=== PATIENT | male | born 1985 | race Caucasian/White ===

== ENCOUNTER 2018-01-05 07:54 | Emergency (ER) | payer OTHER ==
[2018-01-05] MEDS: IBUPROFEN 800 MG TAB PO (08:22)
[2018-01-05 09:38] LABS: ADD MAN DIFF? NO
[2018-01-05 09:45] LABS: WHITE BLOOD COUNT 11.3 10^3/ul (4.8-10.8)
[2018-01-05 09:45] LABS: BASOPHILS % 0.4 % (0.0-2.0); EOSINOPHILS # 0.3 10^3/ul (0.0-0.5); HEMATOCRIT 41.4 % (42.0-52.0); HEMOGLOBIN 13.6 g/dl (14.0-18.0); LYMPHOCYTES # 0.9 10^3/ul (0.8-2.9); LYMPHOCYTES % 7.6 % (15.0-51.0); MEAN CORPUSCULAR HEMOGLOBIN 28.5 pg (29.0-33.0); MEAN CORPUSCULAR HGB CONC 32.9 g/dl (32.0-37.0); MEAN CORPUSCULAR VOLUME 86.6 fl (82.0-101.0); MEAN PLATELET VOLUME 10.3 fl (7.4-10.4); MONOCYTES % 8.8 % (0.0-11.0); NEUTROPHIL # 8.9 10^3/ul (1.6-7.5); NEUTROPHILS % 79.2 % (39.0-77.0); PLATELET COUNT 262 10^3/UL (140-415); RED BLOOD COUNT 4.78 10^6/ul (4.70-6.10); RED CELL DISTRIBUTION WIDTH 13.2 % (11.5-14.5)
[2018-01-05 10:06] LABS: ALANINE AMINOTRANSFERASE 29 IU/L (13-69); ALBUMIN 3.6 g/dl (3.3-4.9); ALBUMIN/GLOBULIN RATIO 1.28; ALKALINE PHOSPHATASE 62 IU/L (42-121); ANION GAP 14 (8-16); ASPARTATE AMINO TRANSFERASE 29 IU/L (15-46); BILIRUBIN,INDIRECT 0.9 mg/dl (0-1.1); BILIRUBIN,TOTAL 0.9 mg/dl (0.2-1.3); BLOOD UREA NITROGEN 11 mg/dl (7-20); CALCIUM 8.2 mg/dl (8.4-10.2); CARBON DIOXIDE 23 mmol/L (21-31); CHLORIDE 107 mmol/L (97-110); CREATININE 0.75 mg/dl (0.61-1.24); GLUCOSE 106 mg/dl (70-220); LIPASE 53 U/L (23-300); SODIUM 141 mmol/L (135-144); TOTAL PROTEIN 6.4 g/dl (6.1-8.1)
[2018-01-05 10:16] LABS: B-TYPE NATRIURETIC PEPTIDE 2530 PG/ML (0-125); TROPONIN-I 0.116 ng/ml (0.000-0.120)
[2018-01-05] MEDS: FUROSEMIDE 40 MG INJ IV (10:37)
[2018-01-05] MEDS: IPRATROPIUM (NEB) 0.5 MG/2.5 ML AMP NEB (10:48)
[2018-01-05] MEDS: ALBUTEROL 0.083% (NEB) 2.5 MG/3 ML AMP NEB (10:48)
[2018-01-05] MEDS: POTASSIUM CHLORIDE (SR) 20 MEQ TAB PO (11:18)
[2018-01-05 11:32] LABS: ADD UMIC YES; UR ASCORBIC ACID 20 mg/dL (NEGATIVE); UR BILIRUBIN (Dip) NEGATIVE (NEGATIVE); UR BLOOD (Dip) NEGATIVE (NEGATIVE); UR CLARITY CLEAR (CLEAR); UR COLOR AMBER (YELLOW); UR GLUCOSE (Dip) NEGATIVE (NEGATIVE); UR KETONES (Dip) NEGATIVE (NEGATIVE); UR LEUKOCYTE ESTERASE (Dip) NEGATIVE Leu/ul (NEGATIVE); UR MUCUS MODERATE /HPF (NONE SEEN); UR NITRITE (Dip) NEGATIVE (NEGATIVE); UR RBC 1 /HPF (0-5); UR TOTAL PROTEIN (Dip) 2+ mg/dl (NEGATIVE); UR UROBILINOGEN (Dip) 2+ mg/dL (NEGATIVE); UR WBC 2 /HPF (0-5)
[2018-01-05 12:05] LABS: BARBITURATES Negative (NEGATIVE); BENZODIAZEPINES Negative (NEGATIVE); CANNABINOIDS Positive (NEGATIVE); COCAINE Negative (NEGATIVE)
[2018-01-05 12:59] LABS: AMPHETAMINE/METHAMPHETAMINE POSITIVE (NEGATIVE)
[2018-01-05 14:58] LABS: OPIATES NEGATIVE (NEGATIVE)
== END 2018-01-05 14:43 | disposition home or self-care (01) ==
LOC: FTE 07:54
DX: E87.6 Hypokalemia (principal); F19.10 Other psychoactive substance abuse, uncomplicated; F17.210 Nicotine dependence, cigarettes, uncomplicated; I10 Essential (primary) hypertension
CPT/HCPCS: 71045; 80053; 80307; 81001; 83690; 83880; 84484; 85025; 93005; 94664; 96374; 99285-25

== ENCOUNTER 2018-06-09 19:17 | Inpatient (IN) | payer OTHER ==
[2018-06-09 20:18] LABS: ADD MAN DIFF? NO
[2018-06-09 20:19] LABS: BASOPHIL # 0.1 10^3/ul (0.0-0.1); BASOPHILS % 0.5 % (0.0-2.0); EOSINOPHILS # 0.2 10^3/ul (0.0-0.5); EOSINOPHILS % 1.7 % (0.0-7.0); HEMATOCRIT 40.1 % (42.0-52.0); LYMPHOCYTES # 1.4 10^3/ul (0.8-2.9); LYMPHOCYTES % 10.7 % (15.0-51.0); MEAN CORPUSCULAR HEMOGLOBIN 23.3 pg (29.0-33.0); MEAN CORPUSCULAR HGB CONC 29.9 g/dl (32.0-37.0); MEAN CORPUSCULAR VOLUME 77.9 fl (82.0-101.0); MEAN PLATELET VOLUME 9.4 fl (7.4-10.4); MONOCYTE # 0.9 10^3/ul (0.3-0.9); MONOCYTES % 6.6 % (0.0-11.0); NEUTROPHIL # 10.2 10^3/ul (1.6-7.5); NEUTROPHILS % 79.7 % (39.0-77.0); PLATELET COUNT 404 10^3/UL (140-415); RED BLOOD COUNT 5.15 10^6/ul (4.70-6.10); RED CELL DISTRIBUTION WIDTH 17.2 % (11.5-14.5)
[2018-06-09 20:19] LABS: WHITE BLOOD COUNT 12.9 10^3/ul (4.8-10.8)
[2018-06-09] MEDS: ASPIRIN 81 MG TAB PO (20:24)
[2018-06-09] MEDS: NITROGLYCERIN 50 MG/D5W (PMX) 250 ML IV (20:25)
[2018-06-09] MEDS: FUROSEMIDE 20 MG INJ IV (20:25)
[2018-06-09 20:41] LABS: INR 1.21; PROTIME 15.4 Sec (11.9-14.9); PT RATIO 1.2
[2018-06-09 20:42] LABS: ALANINE AMINOTRANSFERASE 37 IU/L (13-69); ALBUMIN 3.5 g/dl (3.3-4.9); ALBUMIN/GLOBULIN RATIO 1.12; ALKALINE PHOSPHATASE 97 IU/L (42-121); ANION GAP 11 (5-13); ASPARTATE AMINO TRANSFERASE 30 IU/L (15-46); BILIRUBIN,INDIRECT 0.7 mg/dl (0-1.1); BILIRUBIN,TOTAL 0.7 mg/dl (0.2-1.3); BLOOD UREA NITROGEN 15 mg/dl (7-20); CALCIUM 9.1 mg/dl (8.4-10.2); CARBON DIOXIDE 22 mmol/L (21-31); CHLORIDE 107 mmol/L (97-110); CREATININE 0.91 mg/dl (0.61-1.24); Estimated GFR > 60 mL/min (>60); GLUCOSE 124 mg/dl (70-220); PARTIAL THROMBOPLASTIN TIME 31.1 Sec (23.0-35.0); SODIUM 140 mmol/L (135-144); TOTAL PROTEIN 6.6 g/dl (6.1-8.1)
[2018-06-09 20:53] LABS: B-TYPE NATRIURETIC PEPTIDE 4320 PG/ML (0-125); TROPONIN-I 0.068 ng/ml (0.000-0.120)
[2018-06-09] MEDS ORDERED: morphine 2 MG INJ IV (22:00)
[2018-06-09] MEDS ORDERED: ACETAMINOPHEN 650MG/20.3ML CUP PO (22:00)
[2018-06-09 22:19] LABS: HEMOGLOBIN A1C 6.4 % (0-5.9)
[2018-06-09] MEDS: ACETAMINOPHEN 325 MG TAB PO (22:50)
[2018-06-09 23:24] LABS: ANION GAP 14 (5-13); BLOOD UREA NITROGEN 15 mg/dl (7-20); CARBON DIOXIDE 26 mmol/L (21-31); CHLORIDE 104 mmol/L (97-110); CREATININE 1.02 mg/dl (0.61-1.24); Estimated GFR > 60 mL/min (>60); GLUCOSE 96 mg/dl (70-220); SODIUM 144 mmol/L (135-144)
[2018-06-10] MEDS: ONDANSETRON 4 MG INJ IV (00:03)
[2018-06-10] MEDS: morphine 4 MG/ML VIAL IV ×2 (00:04→10:58)
[2018-06-10 02:42] LABS: CREATINE KINASE 59 IU/L (23-200)
[2018-06-10 02:55] LABS: CK INDEX 2.8; CK-MB 1.63 ng/ml (0.0-2.4); TROPONIN-I 0.081 ng/ml (0.000-0.120)
[2018-06-10] MEDS: LORAZEPAM 2 MG INJ IV ×2 (03:41→19:48)
[2018-06-10] MEDS: NITROGLYCERIN 50 MG/D5W (PMX) 250 ML IV ×5 (03:50→19:49)
[2018-06-10 07:48] LABS: ADD MAN DIFF? NO
[2018-06-10 07:49] LABS: WHITE BLOOD COUNT 15.1 10^3/ul (4.8-10.8)
[2018-06-10 07:49] LABS: BASOPHIL # 0.1 10^3/ul (0.0-0.1); BASOPHILS % 0.5 % (0.0-2.0); EOSINOPHILS # 0.3 10^3/ul (0.0-0.5); HEMATOCRIT 36.9 % (42.0-52.0); LYMPHOCYTES # 1.4 10^3/ul (0.8-2.9); MEAN CORPUSCULAR HEMOGLOBIN 23.6 pg (29.0-33.0); MEAN CORPUSCULAR HGB CONC 29.8 g/dl (32.0-37.0); MEAN CORPUSCULAR VOLUME 79.2 fl (82.0-101.0); MONOCYTES % 6.8 % (0.0-11.0); NEUTROPHIL # 12.2 10^3/ul (1.6-7.5); PLATELET COUNT 372 10^3/UL (140-415); RED BLOOD COUNT 4.66 10^6/ul (4.70-6.10); RED CELL DISTRIBUTION WIDTH 17.2 % (11.5-14.5)
[2018-06-10 08:06] LABS: ANION GAP 10 (5-13); BLOOD UREA NITROGEN 18 mg/dl (7-20); CALCIUM 8.7 mg/dl (8.4-10.2); CARBON DIOXIDE 26 mmol/L (21-31); CHLORIDE 106 mmol/L (97-110); CREATINE KINASE 59 IU/L (23-200); CREATININE 1.11 mg/dl (0.61-1.24); Estimated GFR > 60 mL/min (>60); GLUCOSE 120 mg/dl (70-220); POTASSIUM 4.2 mmol/L (3.5-5.1); SODIUM 142 mmol/L (135-144)
[2018-06-10 08:17] LABS: CK INDEX 3.1; CK-MB 1.82 ng/ml (0.0-2.4); TROPONIN-I 0.071 ng/ml (0.000-0.120)
[2018-06-10 08:23] LABS: AADO2 Arterial 105.8 mmHg (7.0-24.0); Allen Test ACCEPTAB; Arterial Base Excess -0.1 mmol/L (-3.0-3); Arterial Blood Gas Oxygen Sat 90.3 mmHG (95.0-98.0); Arterial COHb 0.9 % (0.0-3.0); Arterial Fraction of Oxyhgb 89.2 % (93.0-99.0); Arterial HCO3 24.6 mmol/L (22.0-26.0); Arterial MetHb 0.3 % (0.0-1.5); Arterial pCO2 40.2 mmhg (35-45); MODE NASAL CANNULA; Site Right Radial
[2018-06-10] MEDS: FAMOTIDINE 20 MG INJ IV ×2 (09:46→11:25)
[2018-06-10] MEDS: ENOXAPARIN 30 MG/0.3 ML SYG SC (09:46)
[2018-06-10] MEDS: LISINOPRIL 20 MG TAB PO (16:02)
[2018-06-10] MEDS: traMADol 50 MG TAB PO (16:04)
[2018-06-10] MEDS ORDERED: ENALAPRILAT IVPB (17:00)
[2018-06-10] MEDS ORDERED: DEXTROSE 5% IVPB (17:00)
[2018-06-10] MEDS: ENALAPRILAT 1.25 MG INJ IV (20:18)
[2018-06-11] MEDS: NITROGLYCERIN 50 MG/D5W (PMX) 250 ML IV (00:42)
[2018-06-11] MEDS: CEPASTAT LOZENGE MT (04:26)
[2018-06-11 04:58] LABS: ADD MAN DIFF? NO
[2018-06-11 05:08] LABS: WHITE BLOOD COUNT 12.9 10^3/ul (4.8-10.8)
[2018-06-11 05:08] LABS: BASOPHIL # 0.1 10^3/ul (0.0-0.1); BASOPHILS % 0.4 % (0.0-2.0); EOSINOPHILS # 0.3 10^3/ul (0.0-0.5); EOSINOPHILS % 2.6 % (0.0-7.0); HEMATOCRIT 37.2 % (42.0-52.0); LYMPHOCYTES # 1.6 10^3/ul (0.8-2.9); LYMPHOCYTES % 12.1 % (15.0-51.0); MEAN CORPUSCULAR HEMOGLOBIN 23.6 pg (29.0-33.0); MEAN CORPUSCULAR HGB CONC 29.6 g/dl (32.0-37.0); MEAN CORPUSCULAR VOLUME 79.8 fl (82.0-101.0); MEAN PLATELET VOLUME 9.6 fl (7.4-10.4); MONOCYTES % 7.5 % (0.0-11.0); NEUTROPHIL # 9.9 10^3/ul (1.6-7.5); NEUTROPHILS % 76.8 % (39.0-77.0); PLATELET COUNT 407 10^3/UL (140-415); RED BLOOD COUNT 4.66 10^6/ul (4.70-6.10); RED CELL DISTRIBUTION WIDTH 17.2 % (11.5-14.5)
[2018-06-11 05:28] LABS: ANION GAP 10 (5-13); BLOOD UREA NITROGEN 22 mg/dl (7-20); CALCIUM 8.9 mg/dl (8.4-10.2); CARBON DIOXIDE 29 mmol/L (21-31); CHLORIDE 101 mmol/L (97-110); CREATININE 1.16 mg/dl (0.61-1.24); Estimated GFR > 60 mL/min (>60); GLUCOSE 120 mg/dl (70-220); POTASSIUM 4.5 mmol/L (3.5-5.1); SODIUM 140 mmol/L (135-144)
[2018-06-11] MEDS: ONDANSETRON 4 MG INJ IV (05:29)
[2018-06-11] MEDS: LORAZEPAM 2 MG INJ IV ×2 (06:24→21:41)
[2018-06-11] MEDS: LISINOPRIL 20 MG TAB PO (09:39)
[2018-06-11] MEDS: FUROSEMIDE 20 MG TAB PO (09:40)
[2018-06-11] MEDS: ASPIRIN (EC) 81 MG TAB PO (09:40)
[2018-06-11] MEDS: ENOXAPARIN 30 MG/0.3 ML SYG SC (09:43)
[2018-06-11] MEDS: FAMOTIDINE 20 MG INJ IV ×2 (09:43→20:16)
[2018-06-11] MEDS: morphine 4 MG/ML VIAL IV (18:00)
[2018-06-12] MEDS: morphine 4 MG/ML VIAL IV ×2 (00:50→22:37)
[2018-06-12] MEDS: ASPIRIN (EC) 81 MG TAB PO (09:01)
[2018-06-12] MEDS: FUROSEMIDE 20 MG TAB PO (09:02)
[2018-06-12] MEDS: FAMOTIDINE 20 MG INJ IV (09:03)
[2018-06-12] MEDS: ENOXAPARIN 30 MG/0.3 ML SYG SC (09:14)
[2018-06-12] MEDS: LISINOPRIL 20 MG TAB PO (11:24)
[2018-06-12] MEDS: LORAZEPAM 2 MG INJ IV ×2 (12:28→19:19)
[2018-06-12] MEDS: FAMOTIDINE 20 MG TAB PO (21:18)
[2018-06-13] MEDS: morphine 4 MG/ML VIAL IV ×2 (05:36→18:13)
[2018-06-13 05:41] LABS: ADD MAN DIFF? NO
[2018-06-13 05:45] LABS: BASOPHIL # 0.1 10^3/ul (0.0-0.1); BASOPHILS % 0.6 % (0.0-2.0); EOSINOPHILS # 0.1 10^3/ul (0.0-0.5); EOSINOPHILS % 0.9 % (0.0-7.0); HEMATOCRIT 38.1 % (42.0-52.0); HEMOGLOBIN 11.5 g/dl (14.0-18.0); LYMPHOCYTES # 1.6 10^3/ul (0.8-2.9); LYMPHOCYTES % 12.9 % (15.0-51.0); MEAN CORPUSCULAR HEMOGLOBIN 23.5 pg (29.0-33.0); MEAN CORPUSCULAR HGB CONC 30.2 g/dl (32.0-37.0); MEAN CORPUSCULAR VOLUME 77.8 fl (82.0-101.0); MEAN PLATELET VOLUME 9.5 fl (7.4-10.4); MONOCYTE # 1.2 10^3/ul (0.3-0.9); MONOCYTES % 9.3 % (0.0-11.0); NEUTROPHIL # 9.4 10^3/ul (1.6-7.5); NEUTROPHILS % 75.4 % (39.0-77.0); PLATELET COUNT 467 10^3/UL (140-415); RED CELL DISTRIBUTION WIDTH 17.2 % (11.5-14.5)
[2018-06-13 05:45] LABS: WHITE BLOOD COUNT 12.4 10^3/ul (4.8-10.8)
[2018-06-13 06:22] LABS: ANION GAP 14 (5-13); BLOOD UREA NITROGEN 29 mg/dl (7-20); CALCIUM 8.7 mg/dl (8.4-10.2); CARBON DIOXIDE 24 mmol/L (21-31); CHLORIDE 100 mmol/L (97-110); CREATININE 0.93 mg/dl (0.61-1.24); Estimated GFR > 60 mL/min (>60); GLUCOSE 138 mg/dl (70-220); MAGNESIUM 1.7 mg/dl (1.7-2.5); POTASSIUM 4.2 mmol/L (3.5-5.1); SODIUM 138 mmol/L (135-144)
[2018-06-13] MEDS: ASPIRIN (EC) 81 MG TAB PO (08:50)
[2018-06-13] MEDS: FUROSEMIDE 20 MG TAB PO (08:50)
[2018-06-13] MEDS: LISINOPRIL 20 MG TAB PO (08:51)
[2018-06-13] MEDS: FAMOTIDINE 20 MG TAB PO ×2 (08:51→20:14)
[2018-06-13] MEDS: ENOXAPARIN 30 MG/0.3 ML SYG SC (08:57)
[2018-06-13] MEDS: LORAZEPAM 2 MG INJ IV ×2 (10:49→20:14)
[2018-06-13] MEDS: ENALAPRILAT 1.25 MG INJ IV (12:07)
[2018-06-13] MEDS: FUROSEMIDE 40 MG INJ IV (20:14)
[2018-06-13] MEDS: MAGNESIUM SULFATE 3 GM in DEXTROSE 5% 100 ML IVPB (21:08)
[2018-06-13] MEDS ORDERED: ENALAPRILAT 2.5 MG INJ IV (22:00)
[2018-06-14] MEDS: morphine 4 MG/ML VIAL IV ×3 (01:12→19:56)
[2018-06-14] MEDS: LORAZEPAM 2 MG INJ IV ×4 (02:31→23:23)
[2018-06-14] MEDS: LISINOPRIL 20 MG TAB PO (08:05)
[2018-06-14] MEDS: FUROSEMIDE 40 MG TAB PO (08:06)
[2018-06-14] MEDS: FAMOTIDINE 20 MG TAB PO ×2 (08:06→19:57)
[2018-06-14] MEDS: ASPIRIN (EC) 81 MG TAB PO (08:07)
[2018-06-14] MEDS: ENOXAPARIN 30 MG/0.3 ML SYG SC (08:28)
[2018-06-14] MEDS: traMADol 50 MG TAB PO (10:31)
[2018-06-14] MEDS: SPIRONOLACTONE 25 MG TAB PO (12:27)
[2018-06-14] MEDS: ALBUTEROL/IPRATROPIUM (NEB) 3 ML AMP HHN (21:02)
[2018-06-15] MEDS: morphine LIQ (10 MG/5 ML) CUP PO ×2 (03:09→21:43)
[2018-06-15 07:08] LABS: ADD MAN DIFF? NO
[2018-06-15 07:18] LABS: BASOPHIL # 0.1 10^3/ul (0.0-0.1); BASOPHILS % 0.6 % (0.0-2.0); EOSINOPHILS # 0.1 10^3/ul (0.0-0.5); EOSINOPHILS % 1.3 % (0.0-7.0); HEMATOCRIT 37.3 % (42.0-52.0); LYMPHOCYTES # 1.8 10^3/ul (0.8-2.9); LYMPHOCYTES % 17.6 % (15.0-51.0); MEAN CORPUSCULAR HEMOGLOBIN 23.2 pg (29.0-33.0); MEAN CORPUSCULAR HGB CONC 29.5 g/dl (32.0-37.0); MEAN CORPUSCULAR VOLUME 78.5 fl (82.0-101.0); MEAN PLATELET VOLUME 9.3 fl (7.4-10.4); MONOCYTES % 9.9 % (0.0-11.0); NEUTROPHIL # 7.2 10^3/ul (1.6-7.5); NEUTROPHILS % 69.9 % (39.0-77.0); PLATELET COUNT 418 10^3/UL (140-415); RED BLOOD COUNT 4.75 10^6/ul (4.70-6.10); RED CELL DISTRIBUTION WIDTH 17.2 % (11.5-14.5)
[2018-06-15 07:18] LABS: WHITE BLOOD COUNT 10.2 10^3/ul (4.8-10.8)
[2018-06-15 07:38] LABS: ANION GAP 11 (5-13); BLOOD UREA NITROGEN 28 mg/dl (7-20); CALCIUM 8.5 mg/dl (8.4-10.2); CARBON DIOXIDE 27 mmol/L (21-31); CHLORIDE 100 mmol/L (97-110); CREATININE 1.08 mg/dl (0.61-1.24); Estimated GFR > 60 mL/min (>60); GLUCOSE 103 mg/dl (70-220); POTASSIUM 3.8 mmol/L (3.5-5.1); SODIUM 138 mmol/L (135-144)
[2018-06-15 07:48] LABS: MAGNESIUM 1.8 mg/dl (1.7-2.5)
[2018-06-15] MEDS: DULOXETINE 30 MG CAP DR PO (08:31)
[2018-06-15] MEDS: ASPIRIN (EC) 81 MG TAB PO (08:32)
[2018-06-15] MEDS: FUROSEMIDE 40 MG TAB PO (08:32)
[2018-06-15] MEDS: LISINOPRIL 20 MG TAB PO ×2 (08:32→20:44)
[2018-06-15] MEDS: SPIRONOLACTONE 25 MG TAB PO (08:32)
[2018-06-15] MEDS: FAMOTIDINE 20 MG TAB PO ×2 (08:32→20:42)
[2018-06-15] MEDS: ENOXAPARIN 30 MG/0.3 ML SYG SC (08:37)
[2018-06-15] MEDS: LORAZEPAM 2 MG INJ IV ×2 (10:17→16:52)
[2018-06-15 13:45] LABS: AADO2 Arterial 52.6 mmHg (7.0-24.0); Arterial Base Excess 0.9 mmol/L (-3.0-3); Arterial Blood Gas Oxygen Sat 81.8 mmHG (95.0-98.0); Arterial COHb 0.8 % (0.0-3.0); Arterial Fraction of Oxyhgb 80.9 % (93.0-99.0); Arterial HCO3 25.3 mmol/L (22.0-26.0); Arterial MetHb 0.3 % (0.0-1.5); Arterial pCO2 39.4 mmhg (35-45); MODE ROOM AIR; Site LB
[2018-06-15] MEDS: POTASSIUM CHLORIDE 20 MEQ POWDER FOR ORAL SOLN PO (15:23)
[2018-06-15] MEDS: MAGNESIUM SULFATE 2 GM/50 ML 50 ML IVPB (15:23)
[2018-06-15] MEDS: ONDANSETRON 4 MG INJ IV (15:23)
[2018-06-16] MEDS: LORAZEPAM 2 MG INJ IV ×2 (03:41→11:12)
[2018-06-16 07:54] LABS: ANION GAP 4 (5-13); BLOOD UREA NITROGEN 25 mg/dl (7-20); CALCIUM 8.6 mg/dl (8.4-10.2); CARBON DIOXIDE 30 mmol/L (21-31); CHLORIDE 104 mmol/L (97-110); CREATININE 1.11 mg/dl (0.61-1.24); Estimated GFR > 60 mL/min (>60); GLUCOSE 105 mg/dl (70-220); MAGNESIUM 2.1 mg/dl (1.7-2.5); POTASSIUM 4.1 mmol/L (3.5-5.1); SODIUM 138 mmol/L (135-144)
[2018-06-16] MEDS: SPIRONOLACTONE 25 MG TAB PO (09:19)
[2018-06-16] MEDS: DULOXETINE 30 MG CAP DR PO (09:19)
[2018-06-16] MEDS: ASPIRIN (EC) 81 MG TAB PO (09:19)
[2018-06-16] MEDS: FAMOTIDINE 20 MG TAB PO ×2 (09:19→20:09)
[2018-06-16] MEDS: FUROSEMIDE 40 MG TAB PO (09:19)
[2018-06-16] MEDS: LISINOPRIL 20 MG TAB PO ×2 (09:20→20:09)
[2018-06-16] MEDS: ENOXAPARIN 30 MG/0.3 ML SYG SC (10:28)
[2018-06-16] MEDS: ONDANSETRON 4 MG INJ IV (12:04)
[2018-06-16] MEDS: AMLODIPINE 5 MG TAB PO (13:16)
[2018-06-16] MEDS: morphine LIQ (10 MG/5 ML) CUP PO (20:09)
[2018-06-16] MEDS: traMADol 50 MG TAB PO (23:02)
[2018-06-17] MEDS: DULOXETINE 30 MG CAP DR PO (08:16)
[2018-06-17] MEDS: FUROSEMIDE 40 MG TAB PO (08:16)
[2018-06-17] MEDS: ASPIRIN (EC) 81 MG TAB PO (08:16)
[2018-06-17] MEDS: LISINOPRIL 20 MG TAB PO ×2 (08:16→20:10)
[2018-06-17] MEDS: SPIRONOLACTONE 25 MG TAB PO (08:16)
[2018-06-17] MEDS: FAMOTIDINE 20 MG TAB PO ×2 (08:16→20:10)
[2018-06-17] MEDS: ENOXAPARIN 30 MG/0.3 ML SYG SC (08:17)
[2018-06-17] MEDS: traMADol 50 MG TAB PO (08:22)
[2018-06-17] MEDS: ONDANSETRON 4 MG INJ IV (11:10)
[2018-06-17] MEDS: AMLODIPINE 5 MG TAB PO (13:50)
[2018-06-17] MEDS: LORAZEPAM 2 MG INJ IV (13:50)
[2018-06-17] MEDS: morphine LIQ (10 MG/5 ML) CUP PO (20:11)
[2018-06-18] MEDS: morphine LIQ (10 MG/5 ML) CUP PO (03:00)
[2018-06-18] MEDS: LISINOPRIL 20 MG TAB PO ×2 (08:23→21:28)
[2018-06-18] MEDS: SPIRONOLACTONE 25 MG TAB PO (08:23)
[2018-06-18] MEDS: ASPIRIN (EC) 81 MG TAB PO (08:23)
[2018-06-18] MEDS: FAMOTIDINE 20 MG TAB PO ×2 (08:23→21:27)
[2018-06-18] MEDS: DULOXETINE 30 MG CAP DR PO (08:23)
[2018-06-18] MEDS: FUROSEMIDE 40 MG TAB PO (08:24)
[2018-06-18] MEDS: ENOXAPARIN 30 MG/0.3 ML SYG SC (08:28)
[2018-06-18] MEDS: LORAZEPAM 2 MG INJ IV ×2 (09:30→21:29)
[2018-06-18] MEDS: AMLODIPINE 5 MG TAB PO (14:16)
[2018-06-19] MEDS: LORAZEPAM 2 MG INJ IV ×2 (06:49→21:08)
[2018-06-19] MEDS: FAMOTIDINE 20 MG TAB PO ×2 (08:37→20:54)
[2018-06-19] MEDS: FUROSEMIDE 40 MG TAB PO (08:38)
[2018-06-19] MEDS: ASPIRIN (EC) 81 MG TAB PO (08:38)
[2018-06-19] MEDS: DULOXETINE 30 MG CAP DR PO (08:38)
[2018-06-19] MEDS: LISINOPRIL 20 MG TAB PO ×2 (08:38→20:54)
[2018-06-19] MEDS: SPIRONOLACTONE 25 MG TAB PO (08:38)
[2018-06-19] MEDS: ENOXAPARIN 30 MG/0.3 ML SYG SC (08:49)
[2018-06-19] MEDS: morphine LIQ (10 MG/5 ML) CUP PO (08:50)
[2018-06-19] MEDS: AMLODIPINE 5 MG TAB PO (13:22)
[2018-06-20] MEDS: traMADol 50 MG TAB PO (04:01)
[2018-06-20] MEDS: LORAZEPAM 2 MG INJ IV (05:02)
[2018-06-20 07:56] LABS: ADD MAN DIFF? NO
[2018-06-20 08:03] LABS: BASOPHIL # 0.1 10^3/ul (0.0-0.1); BASOPHILS % 0.7 % (0.0-2.0); EOSINOPHILS # 0.3 10^3/ul (0.0-0.5); EOSINOPHILS % 2.5 % (0.0-7.0); HEMATOCRIT 40.5 % (42.0-52.0); LYMPHOCYTES # 1.6 10^3/ul (0.8-2.9); LYMPHOCYTES % 16.6 % (15.0-51.0); MEAN CORPUSCULAR HEMOGLOBIN 23.2 pg (29.0-33.0); MEAN CORPUSCULAR HGB CONC 29.6 g/dl (32.0-37.0); MEAN CORPUSCULAR VOLUME 78.3 fl (82.0-101.0); MEAN PLATELET VOLUME 9.3 fl (7.4-10.4); MONOCYTE # 0.9 10^3/ul (0.3-0.9); MONOCYTES % 9.3 % (0.0-11.0); NEUTROPHIL # 6.9 10^3/ul (1.6-7.5); NEUTROPHILS % 70.3 % (39.0-77.0); PLATELET COUNT 482 10^3/UL (140-415); RED BLOOD COUNT 5.17 10^6/ul (4.70-6.10); RED CELL DISTRIBUTION WIDTH 16.9 % (11.5-14.5)
[2018-06-20 08:03] LABS: WHITE BLOOD COUNT 9.9 10^3/ul (4.8-10.8)
[2018-06-20 08:19] LABS: ANION GAP 7 (5-13); BLOOD UREA NITROGEN 23 mg/dl (7-20); CALCIUM 8.6 mg/dl (8.4-10.2); CARBON DIOXIDE 26 mmol/L (21-31); CHLORIDE 104 mmol/L (97-110); CREATININE 0.94 mg/dl (0.61-1.24); Estimated GFR > 60 mL/min (>60); GLUCOSE 86 mg/dl (70-220); MAGNESIUM 2.1 mg/dl (1.7-2.5); POTASSIUM 4.5 mmol/L (3.5-5.1); SODIUM 137 mmol/L (135-144)
[2018-06-20] MEDS: DULOXETINE 30 MG CAP DR PO (09:09)
[2018-06-20] MEDS: SPIRONOLACTONE 25 MG TAB PO (09:09)
[2018-06-20] MEDS: ASPIRIN (EC) 81 MG TAB PO (09:10)
[2018-06-20] MEDS: LISINOPRIL 20 MG TAB PO (09:10)
[2018-06-20] MEDS: FUROSEMIDE 40 MG TAB PO (09:10)
[2018-06-20] MEDS: FAMOTIDINE 20 MG TAB PO (09:10)
[2018-06-20] MEDS: ENOXAPARIN 30 MG/0.3 ML SYG SC (10:50)
[2018-06-20] MEDS: AMLODIPINE 5 MG TAB PO (14:00)
== END 2018-06-20 18:25 | disposition home or self-care (01) | DRG 292 ==
LOC: 6WM 06-12 00:20 → TEL 06-14 14:48 → E/R 19:17 → ICU 21:44
DX: I11.0 Hypertensive heart disease with heart failure (principal); I50.23 Acute on chronic systolic (congestive) heart failure; Z68.41 Body mass index [BMI] 40.0-44.9, adult; F15.10 Other stimulant abuse, uncomplicated; I42.9 Cardiomyopathy, unspecified; I16.0 Hypertensive urgency; E78.5 Hyperlipidemia, unspecified; F32.9 Major depressive disorder, single episode, unspecified; E66.9 Obesity, unspecified; Z91.19 Patient's noncompliance with other medical treatment and regimen
CPT/HCPCS: 36415; 36600; 71045; 80048; 80053; 82550; 82553; 82803; 83036; 83735; 83880; 84484; 85025; 85610; 85730; 87081; 93005; 93306; 94660; 94664; 96374; 99291-25